=== PATIENT | female | born 1975 | race Caucasian/White ===

== ENCOUNTER 2018-01-29 01:49 | Emergency (ER) | payer MEDICAID ==
[~2018-01-29] VITALS: Ht 149.9 cm; Wt 69.7 kg
[2018-01-29] MEDS ORDERED: ESOM20CA PO (01:55)
[2018-01-29] MEDS ORDERED: EPINEPHRINE 1 MG/ML, 1ML ONE (02:14)
[2018-01-29 02:22] LABS: BASOPHILS # (AUTO) 0.05 x10^3/uL (0-0.1); BASOPHILS % (AUTO) 1 % (0-1); EOSINOPHILS # (AUTO) 0.39 x10^3/uL (0-0.4); EOSINOPHILS % (AUTO) 5 % (1-7); LYMPHOCYTES # (AUTO) 2.79 x10^3/uL (1-3.4); LYMPHOCYTES % (AUTO) 33 % (22-44); MD NO; MEAN CORPUSCULAR HEMOGLOBIN 30.6 pg (27.0-34.8); MEAN CORPUSCULAR HGB CONC 33.6 g/dL (32.4-35.8); MEAN PLATELET VOLUME 8.5 fL (7.4-10.4); MONOCYTES # (AUTO) 0.56 x10^3/uL (0.2-0.8); MONOCYTES % (AUTO) 7 % (2-9); NEUTROPHILS # (AUTO) 4.79 x10^3/uL (1.8-6.8); NEUTROPHILS % (AUTO) 56 % (42-75); PLATELET COUNT 282 x10^3/uL (130-400); RED BLOOD COUNT 3.96 x10^6/uL (3.82-5.3); RED CELL DISTRIBUTION WIDTH 13.5 % (9.6-15.2)
[2018-01-29 02:29] LABS: ALANINE AMINOTRANSFERASE 40 U/L (12-78); ALBUMIN 3.6 g/dL (3.4-5.0); ANION GAP 8 mmol/L (5-15); CALCIUM 8.6 mg/dL (8.5-10.1); CHLORIDE 109 mmol/L (98-107); CREATININE 1.01 mg/dL (0.55-1.02)
[2018-01-29] MEDS ORDERED: EPINEPHRINE 1 MG/ML, 1ML SQ ONE (02:30)
[2018-01-29] MEDS ORDERED: hydrOXYzine 25 MG/ML IM ONE (02:30)
[2018-01-29 02:31] LABS: ALKALINE PHOSPHATASE 76 U/L (45-117); BILIRUBIN,TOTAL 0.3 mg/dL (0.2-1.0); TOTAL PROTEIN 7.4 g/dL (6.4-8.2)
[2018-01-29] MEDS ORDERED: hydrOXyzine 50MG TABLET ONE (02:58)
[2018-01-29 03:27] VITALS: BP 121/89
== END 2018-01-29 03:44 | disposition home or self-care (01) ==
LOC: ED 03:35
DX: L50.9 Urticaria, unspecified (principal)
CPT/HCPCS: 36415; 80053; 85025; 96372; 99284; J0171; J7512; Q0177